=== PATIENT | female | born 1965 | race Caucasian/White ===

== ENCOUNTER → 2017-05-19 | Outpatient (CLI) | payer BC ==
[~2017-05-19] MED LIST: AMR2 PO; ASPI81TA28 PO; CHOLTAB3 PO; COEN100C28 PO; FLAX10007 PO; GLIM1TAB2 PO; METF-384 PO; METF500T5 PO; MULT-506 PO; OMEG10007 PO
--- NOTE | 2017-05-19 08:58 | DIAGNOSTIC IMAGING REPORT ---
R WRIST MIN 3 VIEWS ROUTINE CLINICAL HISTORY: RIGHT WRIST PAIN pain COMPARISON: None. DISCUSSION: The bones and joint spaces appear intact. There is no evidence of fracture, dislocation or bony disease. There is no evidence for soft tissue swelling. IMPRESSION: Negative study. The above report was generated using voice recognition software. It may contain grammatical, syntax or spelling errors. Electronically signed by: Yandel Fermin M.D. 05/19/2017 8:57 AM Dictated Date/Time: 05/19/2017 8:56 AM
== END | disposition home or self-care (01) ==
LOC: C.RDSM 12:21
PROVIDERS: ATTEND Internal Medicine
DX: M25.531 Pain in right wrist (principal)